=== PATIENT | female | born 1995 | race African-American/Black ===

== ENCOUNTER 2017-05-29 10:06 | Inpatient (IN) | payer MEDICAID ==
[~2017-05-29] VITALS: Ht 157.5 cm; Wt 46.3 kg
[2017-05-29 10:50] LABS: APPEARANCE,URINE CLOUDY; KETONES,URINE NEGATIVE (NEGATIVE); LEUKOCYTE ESTERASE ,URINE 1+ (NEGATIVE); NITRITE,URINE NEGATIVE (NEGATIVE); PH,URINE 6.5 (4.5-8.0); PROTEIN,URINE 3+ (NEGATIVE); UROBILINOGEN,URINE NORMAL MG/DL (0.0-1.0)
[2017-05-29 10:55] LABS: BACTERIA,URINE FEW /HPF; RBC,URINE TNTC /HPF (0 - 2); SQUAMOUS EPITHELIAL CELL,UR FEW /LPF (NONE/OCC)
--- NOTE | 2017-05-29 11:16 | Emergency Room Report ---
History of Present Illness General Chief Complaint: Complications Source: Patient Present Illness HPI Patient presents with complaints of possible miscarriage She reports that she was approximately one month late on her menstrual cycle Yesterday she noticed increased spotting And heavier clot this morning Patient has an 29-aojhn-hla child And has had 3 previous miscarriage/ Abdominal cramps improved after passing clots Denies any vomiting or diarrhea denies any fevers or chills Patient had a home 2 days ago which was positive Allergies: Coded Allergies: NO KNOWN ALLERGIES (Unverified Allergy, Unknown, 06/24/15) Patient History Past Medical History: see triage record Pertinent Family History: none Reviewed Nursing Documentation: PMH: Agreed, PSxH: Agreed Review of Systems All Other Systems: negative except mentioned in HPI Physical Exam Vital Signs Date Time Temp Pulse Resp B/P (MAP) Pulse Ox O2 Delivery O2 Flow Rate FiO2 05/29/17 10:16 98.2 86 20 139/79 99 Room Air Sp02 EP Interpretation: reviewed, normal General Appearance: well appearing, no apparent distress Head: normocephalic, atraumatic Eyes: bilateral eye PERRL, bilateral eye EOMI ENT: hearing grossly normal, normal pharynx, TMs + canals normal, uvula midline Neck: full range of motion, supple, no meningismus, no bony tend Respiratory: lungs clear, normal breath sounds, no rhonchi, no respiratory distress, no retraction, no accessory muscle use Cardiovascular #1: normal peripheral pulses, regular rate, rhythm, no edema, no gallop, no JVD, no murmur Gastrointestinal: normal bowel sounds, non tender, soft, no mass, no organomegaly, non-distended, no guarding, no hernia, no pulsatile mass, no rebound Genitourinary: no CVA tenderness Musculoskeletal: normal inspection Neurologic: oriented x3, responsive, protection officer III-XII nml as tested, motor strength/ tone normal, sensory intact Psychiatric: mood/affect normal Skin: normal color, no rash, warm/dry, palpation normal Lymphatic: normal inspection, no adenopathy Procedures Critical Care Time Critical Care Time 40 minutes for multiple re\re evaluations Diagnosis and findings in line with life-threatening pathology Requiring consultation Not involving any procedural time Medical Decision Making Diagnostic Impression: Primary Impression: Ectopic ER Course With the patient's history and examination, multiple differentials considered, including but not limited to , ectopic , ovarian torsion, gastritis, cholecystitis, pancreatitis, appendicitis Patient's beta Quant is over 6000 At this time the ultrasound does not show intrauterine however there is an adnexal mass on the right side which appears to be likely a sac raising the concern of ectopic Patient's discomfort is somewhat improved however still present Further hydration is provided and consultation with RN PROCEDURES Patient was initiated on methotrexate And at this time will be admitted for further care Labs Test 05/29/17 10:21 05/29/17 10:25 Human Chorionic Gonadotropin, Quant 6523 mIU/mL (1-6) Urine Color Red Urine Appearance Cloudy Urine pH 6.5 (4.5-8.0) Urine Specific [place] 1.020 (1.005-1.035) Urine Protein 3+ (NEGATIVE) Urine Glucose (UA) Negative (NEGATIVE) Urine Ketones Negative (NEGATIVE) Urine Occult Blood 5+ (NEGATIVE) Urine Nitrite Negative (NEGATIVE) Urine Bilirubin Negative (NEGATIVE) Urine Urobilinogen Normal MG/DL (0.0-1.0) Urine Leukocyte Esterase 1+ (NEGATIVE) Urine RBC Tntc /HPF (0 - 2) Urine WBC 2-4 /HPF (0 - 2) Urine Squamous Epithelial Cells Few /LPF (NONE/OCC) Urine Bacteria Few /HPF (NONE) Urine HCG, Qualitative Positive CT/MRI/US Diagnostic Results CT/MRI/US Diagnostic Results : Impression Pelvic ultrasound: No evidence of intrauterine , right-sided adnexal mass, appearance of sac like material, minimal fluid Last Vital Signs Date Time Temp Pulse Resp B/P (MAP) Pulse Ox O2 Delivery O2 Flow Rate FiO2 05/29/17 10:16 98.2 86 20 139/79 99 Room Air Status: improved Disposition: ADMITTED INPATIENT Condition: Serious Scripts No Active Prescriptions or Reported Meds Referrals: NOT CHOSEN IPA/,REFERRING (PCP) MIGUELINA PURI D.O. May 29, 2017 11:16
[2017-05-29] MEDS ORDERED: Methotrexate Sodium 50mg/2ml vial IM ONE (14:00)
[2017-05-29] MEDS ORDERED: Metoclopramide 10mg/2ml Inj IVP PRN (15:15)
[2017-05-29] MEDS ORDERED: Morphine Sulfate 2mg/ml Inj IVP PRN (15:15)
[2017-05-29] MEDS ORDERED: Mylanta II UD 30ml ORAL PRN (15:15)
[2017-05-29] MEDS ORDERED: LORazepam Inj 2mg/ml 1ml IV PRN (15:15)
[2017-05-29] MEDS ORDERED: Nitroglycerin Subl 0.4mg tab SL PRN (15:15)
[2017-05-29 15:17] LABS: BASOPHILS % (AUTO) 1.7 % (0.0-2.0); EOSINOPHILS % (AUTO) 0.5 % (0.0-3.0); LYMPHOCYTES % (AUTO) 40.2 % (20.0-45.0); MEAN CORPUSCULAR HEMOGLOBIN 27.4 PG (27.0-31.0); MEAN CORPUSCULAR HGB CONC 32.2 G/DL (32.0-36.0); MEAN CORPUSCULAR VOLUME 85 FL (80-99); MEAN PLATELET VOLUME 8.2 FL (6.5-10.1); MONOCYTES % (AUTO) 6.5 % (1.0-10.0); NEUTROPHILS % (AUTO) 51.2 % (45.0-75.0); PLATELET COUNT 222 K/UL (150-450); RED BLOOD COUNT 4.22 M/UL (4.20-5.40); RED CELL DISTRIBUTION WIDTH 15.1 % (11.6-14.8); WHITE BLOOD COUNT 5.2 K/UL (4.8-10.8)
[2017-05-29 15:35] LABS: ANION GAP 10 mmol/L (5-15); CALCIUM 8.9 MG/DL (8.5-10.1); CARBON DIOXIDE 25 MMOL/L (21-32); CHLORIDE 106 MMOL/L (98-107); CREATININE 0.6 MG/DL (0.55-1.30); GLOMERULAR FILTRATION RATE > 60 mL/min (>60); POTASSIUM 3.7 MMOL/L (3.5-5.1); SODIUM 141 MMOL/L (136-145)
[2017-05-29 15:39] LABS: PROTHROMBIN TIME 10.7 SEC (9.30-11.50)
[2017-05-29] MEDS: D5 1/2NS 1,000 ML IV SCH (15:49)
[2017-05-29 16:14] VITALS: BP 139/82
[2017-05-29 20:20] VITALS: BP 117/70
[2017-05-29] MEDS ORDERED: Miralax 17gm pkt ORAL PRN (21:00)
--- NOTE | 2017-05-29 22:14 | History and Physical ---
History of Present Illness General Date patient seen: May 29, 2017 Reason for Hospitalization: Complications Present Illness HPI Patient presents with complaints of possible miscarriage. She reports that she was approximately one month late on her menstrual cycle Yesterday she noticed increased spotting. Abdominal cramps improved after passing clots. She was diagnosed to have ectopic in ER and received a dose of Methotrexate. Motor Generator Set Operator was consulted as well. Allergies: Coded Allergies: NO KNOWN ALLERGIES (Unverified Allergy, Unknown, 06/24/15) Medication History No Active Prescriptions or Reported Meds Patient History Healthcare decision maker Resuscitation status Full Code Advanced Directive on File Review of Systems Gastrointestinal: Reports: abdominal pain Physical Exam General Appearance: WD/WN Lines, tubes and drains: peripheral HEENT: normocephalic, mucous membranes moist Neck: non-tender, normal alignment Respiratory/Chest: chest wall non-tender, lungs clear Breasts: no masses Cardiovascular/Chest: normal rate, regular rhythm Last 24 Hour Vital Signs Date Time Temp Pulse Resp B/P (MAP) Pulse Ox O2 Delivery O2 Flow Rate FiO2 05/29/17 20:20 98.2 70 20 117/70 100 Room Air 05/29/17 16:14 98.7 70 20 139/82 100 Room Air 05/29/17 15:30 98.2 80 20 139/79 99 Room Air 05/29/17 10:16 98.2 86 20 139/79 99 Room Air Intake and Output 05/29/17 05/30/17 19:00 07:00 Intake Total 225 ml Balance 225 ml Intake IV Total 225 ml # Voids 1 # Sanitary Pads 4 Laboratory Tests Test 05/29/17 10:21 05/29/17 10:25 05/29/17 14:49 Human Chorionic Gonadotropin, Quant 6523 mIU/mL (1-6) H Urine Color Red Urine Appearance Cloudy Urine pH 6.5 (4.5-8.0) Urine Specific [place] 1.020 (1.005-1.035) Urine Protein 3+ (NEGATIVE) H Urine Glucose (UA) Negative (NEGATIVE) Urine Ketones Negative (NEGATIVE) Urine Occult Blood 5+ (NEGATIVE) H Urine Nitrite Negative (NEGATIVE) Urine Bilirubin Negative (NEGATIVE) Urine Urobilinogen Normal MG/DL (0.0-1.0) Urine Leukocyte Esterase 1+ (NEGATIVE) H Urine RBC Tntc /HPF (0 - 2) H Urine WBC 2-4 /HPF (0 - 2) Urine Squamous Epithelial Cells Few /LPF (NONE/OCC) Urine Bacteria Few /HPF (NONE) Urine HCG, Qualitative Positive White Blood Count 5.2 K/UL (4.8-10.8) Red Blood Count 4.22 M/UL (4.20-5.40) Hemoglobin 11.6 G/DL (12.0-16.0) L Hematocrit 36.0 % (37.0-47.0) L Mean Corpuscular Volume 85 FL (80-99) Mean Corpuscular Hemoglobin 27.4 PG (27.0-31.0) Mean Corpuscular Hemoglobin Concent 32.2 G/DL (32.0-36.0) Red Cell Distribution Width 15.1 % (11.6-14.8) H Platelet Count 222 K/UL (150-450) Mean Platelet Volume 8.2 FL (6.5-10.1) Neutrophils (%) (Auto) 51.2 % (45.0-75.0) Lymphocytes (%) (Auto) 40.2 % (20.0-45.0) Monocytes (%) (Auto) 6.5 % (1.0-10.0) Eosinophils (%) (Auto) 0.5 % (0.0-3.0) Basophils (%) (Auto) 1.7 % (0.0-2.0) Prothrombin Time 10.7 SEC (9.30-11.50) Prothromb Time International Ratio 1.0 (0.9-1.1) Activated Partial Thromboplast Time 28 SEC (23-33) Sodium Level 141 MMOL/L (136-145) Potassium Level 3.7 MMOL/L (3.5-5.1) Chloride Level 106 MMOL/L (98-107) Carbon Dioxide Level 25 MMOL/L (21-32) Anion Gap 10 mmol/L (5-15) Blood Urea Nitrogen 9 mg/dL (7-18) Creatinine 0.6 MG/DL (0.55-1.30) Estimat Glomerular Filtration Rate > 60 mL/min (>60) Glucose Level 90 MG/DL (74-106) Calcium Level 8.9 MG/DL (8.5-10.1) Height (Feet): 5 Height (Inches): 2.00 Weight (Pounds): 102 Medications Current Medications Medications (Trade) Dose Ordered Sig/May Route PRN Reason Start Time Stop Time Status Last Admin Dose Admin Acetaminophen (Tylenol) 650 mg Q4H PRN ORAL T<100.5 F 05/29/17 15:15 06/28/17 15:14 Al Hydroxide/Mg Hydroxide (Mylanta II) 30 ml Q6H PRN ORAL dyspepsia 05/29/17 15:15 06/28/17 15:14 Dextrose (Dextrose 50%) STAT PRN IV Hypoglycemia 05/29/17 15:15 06/28/17 15:14 Dextrose/Sodium Chloride 1,000 ml @ 75 mls/hr [id number] IV 05/29/17 15:03 06/28/17 15:02 05/29/17 15:49 Diphenhydramine HCl (Benadryl) 25 mg Q6H PRN ORAL Itching/Pruritis 05/29/17 15:15 06/28/17 15:14 Lorazepam (Ativan 2mg/ml 1ml) 1 mg Q4H PRN IV agitation 05/29/17 15:15 06/05/17 15:14 Metoclopramide HCl (Reglan) 10 mg Q6H PRN IVP servere nauasea 05/29/17 15:15 06/28/17 15:14 Morphine Sulfate (Morphine Sulfate) 2 mg Q4H PRN IVP Severe Pain (Pain Scale 7-10) 05/29/17 15:15 06/05/17 15:14 05/29/17 17:39 Nitroglycerin (Ntg) 0.4 mg Q5M X 3 DOSES PRN SL Prn Chest Pain 05/29/17 15:15 06/28/17 15:14 Ondansetron HCl (Zofran) 4 mg Q6H PRN IVP Nausea & Vomiting 05/29/17 15:15 06/28/17 15:14 05/29/17 21:29 Pantoprazole (Protonix) 40 mg DAILY IV 05/30/17 09:00 06/29/17 08:59 Polyethylene Glycol (Miralax) 17 gm HSPRN PRN ORAL Constipation 05/29/17 21:00 06/28/17 20:59 Temazepam (Restoril) 15 mg HSPRN PRN ORAL Insomnia 05/29/17 21:00 06/05/17 20:59 Assessment/Plan Problem List: (1) Ectopic ICD Codes: O00.90 - Unspecified ectopic without intrauterine SNOMED: [id number] Assessment/Plan symptomatic treatment s/p methotrexate. EHSAN HAYWARD May 29, 2017 22:14
[2017-05-30 04:00] VITALS: BP 116/71
[2017-05-30] MEDS: D5 1/2NS 1,000 ML IV SCH (04:23)
[2017-05-30 08:00] VITALS: BP 110/64
[2017-05-30 08:19] LABS: BASOPHILS % (AUTO) 2.1 % (0.0-2.0); EOSINOPHILS % (AUTO) 1.2 % (0.0-3.0); LYMPHOCYTES % (AUTO) 37.5 % (20.0-45.0); MEAN CORPUSCULAR HEMOGLOBIN 27.4 PG (27.0-31.0); MEAN CORPUSCULAR HGB CONC 32.3 G/DL (32.0-36.0); MEAN CORPUSCULAR VOLUME 85 FL (80-99); MEAN PLATELET VOLUME 7.8 FL (6.5-10.1); MONOCYTES % (AUTO) 7.4 % (1.0-10.0); NEUTROPHILS % (AUTO) 51.8 % (45.0-75.0); PLATELET COUNT 206 K/UL (150-450); RED BLOOD COUNT 3.79 M/UL (4.20-5.40); RED CELL DISTRIBUTION WIDTH 15.5 % (11.6-14.8); WHITE BLOOD COUNT 4.1 K/UL (4.8-10.8)
[2017-05-30 08:57] LABS: ALANINE AMINOTRANSFERASE 19 U/L (12-78); ALBUMIN/GLOBULIN RATIO 1.1 (1.0-2.7); ANION GAP 11 mmol/L (5-15); ASPARTATE AMINO TRANSFERASE 15 U/L (15-37); CALCIUM 8.3 MG/DL (8.5-10.1); CARBON DIOXIDE 24 MMOL/L (21-32); CHLORIDE 105 MMOL/L (98-107); CREATININE 0.7 MG/DL (0.55-1.30); GLOMERULAR FILTRATION RATE > 60 mL/min (>60); POTASSIUM 3.2 MMOL/L (3.5-5.1); SODIUM 140 MMOL/L (136-145); TOTAL PROTEIN 6.7 G/DL (6.4-8.2)
[2017-05-30 09:00] LABS: BILIRUBIN,DIRECT 0.3 MG/DL (0.0-0.3)
[2017-05-30] MEDS ORDERED: Pantoprazole Inj IV SCH (09:00)
--- NOTE | 2017-05-30 10:13 | Diagnostic Imaging Report ---
Indication: Pelvic pain Technique: OB ultrasound first trimester. Comparison: None Findings: Uterus measures 10.7 x 5.4 x 5.9 cm. The endometrial echo complex measures 11 mm. No intrauterine is identified. Right ovary measures 2.9 x 2.7 cm. There is a thick rimmed right adnexal structure measuring 1.7 x 1.2 cm. No yolk sac or pole are identified. There is trace free fluid in the pelvis. The left ovary measures 2.5 x 2.0 cm and is grossly unremarkable. Impression: No intrauterine . Approximately 1.7 x 1.2 cm thick rimmed right adnexal structure and possibility of ectopic should be considered. No yolk sac or pole identified. Laboratory/clinical correlation recommended. Followup imaging recommended as indicated. Trace free fluid in the pelvis. Other findings as above. Findings discussed with Dr. Jovel.
[2017-05-30] MEDS ORDERED: D5 1/2NS 1000ml IV ONE (10:57)
--- NOTE | 2017-05-30 11:05 | Pulmonology Progress Note ---
Assessment/Plan Problems: (1) Ectopic Assessment/Plan d/w dr Murrieta. its ok to dc the pt home. Subjective ROS Limited/Unobtainable: No Constitutional: Reports: no symptoms HEENT: Repors: no symptoms Respiratory: Reports: no symptoms Allergies: Coded Allergies: NO KNOWN ALLERGIES (Unverified Allergy, Unknown, 06/24/15) Objective Last 24 Hour Vital Signs Date Time Temp Pulse Resp B/P (MAP) Pulse Ox O2 Delivery O2 Flow Rate FiO2 05/30/17 08:00 97.9 72 18 110/64 98 Room Air 05/30/17 04:00 98.3 74 17 116/71 96 Room Air 05/29/17 20:20 98.2 70 20 117/70 100 Room Air 05/29/17 16:14 98.7 70 20 139/82 100 Room Air 05/29/17 15:30 98.2 80 20 139/79 99 Room Air General Appearance: WD/WN HEENT: normocephalic, atraumatic Respiratory/Chest: chest wall non-tender, lungs clear Cardiovascular: normal peripheral pulses, regular rhythm Genitourinary: normal external genitalia Extremities: no clubbing Skin: no rash Laboratory Tests 05/29/17 14:49: White Blood Count 5.2, Red Blood Count 4.22, Hemoglobin 11.6L, Hematocrit 36.0L , Mean Corpuscular Volume 85, Mean Corpuscular Hemoglobin 27.4, Mean Corpuscular Hemoglobin Concent 32.2, Red Cell Distribution Width 15.1H, Platelet Count 222, Mean Platelet Volume 8.2, Neutrophils (%) (Auto) 51.2, Lymphocytes (%) (Auto) 40.2, Monocytes (%) (Auto) 6.5, Eosinophils (%) (Auto) 0.5, Basophils (%) (Auto) 1.7, Prothrombin Time 10.7, Prothromb Time International Ratio 1.0, Activated Partial Thromboplast Time 28, Sodium Level 141, Potassium Level 3.7, Chloride Level 106, Carbon Dioxide Level 25, Anion Gap 10, Blood Urea Nitrogen 9, Creatinine 0.6, Estimat Glomerular Filtration Rate > 60, Glucose Level 90, Calcium Level 8.9 05/30/17 06:32: White Blood Count 4.1L, Red Blood Count 3.79L, Hemoglobin 10.4L, Hematocrit 32.1L, Mean Corpuscular Volume 85, Mean Corpuscular Hemoglobin 27.4, Mean Corpuscular Hemoglobin Concent 32.3, Red Cell Distribution Width 15.5H, Platelet Count 206, Mean Platelet Volume 7.8, Neutrophils (%) (Auto) 51.8, Lymphocytes (%) (Auto) 37.5, Monocytes (%) (Auto) 7.4, Eosinophils (%) (Auto) 1.2, Basophils (%) (Auto) 2.1H, Activated Partial Thromboplast Time 29, Sodium Level 140, Potassium Level 3.2L, Chloride Level 105, Carbon Dioxide Level 24, Anion Gap 11, Blood Urea Nitrogen 8, Creatinine 0.7, Estimat Glomerular Filtration Rate > 60, Glucose Level 87, Calcium Level 8.3L, Total Bilirubin 2.2H , Direct Bilirubin 0.3, Aspartate Amino Transf (AST/SGOT) 15, Alanine Aminotransferase (ALT/SGPT) 19, Alkaline Phosphatase 40L, Total Protein 6.7, Albumin 3.5, Globulin 3.2, Albumin/Globulin Ratio 1.1 Current Medications Medications (Trade) Dose Ordered Sig/May Route PRN Reason Start Time Stop Time Status Last Admin Dose Admin Acetaminophen (Tylenol) 650 mg Q4H PRN ORAL T<100.5 F 05/29/17 15:15 06/28/17 15:14 Al Hydroxide/Mg Hydroxide (Mylanta II) 30 ml Q6H PRN ORAL dyspepsia 05/29/17 15:15 06/28/17 15:14 Dextrose (Dextrose 50%) STAT PRN IV Hypoglycemia 05/29/17 15:15 06/28/17 15:14 Dextrose/Sodium Chloride 1,000 ml @ 75 mls/hr [id number] IV 05/29/17 15:03 06/28/17 15:02 05/30/17 04:23 Diphenhydramine HCl (Benadryl) 25 mg Q6H PRN ORAL Itching/Pruritis 05/29/17 15:15 06/28/17 15:14 Lorazepam (Ativan 2mg/ml 1ml) 1 mg Q4H PRN IV agitation 05/29/17 15:15 06/05/17 15:14 Metoclopramide HCl (Reglan) 10 mg Q6H PRN IVP servere nauasea 05/29/17 15:15 06/28/17 15:14 Morphine Sulfate (Morphine Sulfate) 2 mg Q4H PRN IVP Severe Pain (Pain Scale 7-10) 05/29/17 15:15 06/05/17 15:14 05/29/17 17:39 Nitroglycerin (Ntg) 0.4 mg Q5M X 3 DOSES PRN SL Prn Chest Pain 05/29/17 15:15 06/28/17 15:14 Ondansetron HCl (Zofran) 4 mg Q6H PRN IVP Nausea & Vomiting 05/29/17 15:15 06/28/17 15:14 05/29/17 21:29 Pantoprazole (Protonix) 40 mg DAILY IV 05/30/17 09:00 06/29/17 08:59 05/30/17 10:00 Polyethylene Glycol (Miralax) 17 gm HSPRN PRN ORAL Constipation 05/29/17 21:00 06/28/17 20:59 Temazepam (Restoril) 15 mg HSPRN PRN ORAL Insomnia 05/29/17 21:00 06/05/17 20:59 EHSAN HAYWARD May 30, 2017 11:05
--- NOTE | 2017-06-01 13:11 | Discharge Summary ---
Discharge Summary Hospital Course Date of Admission May 29, 2017 at 14:05 Date of Discharge May 30, 2017 at 11:51 Admitting Diagnosis ectopic JAYSON Mckay is a 21 year old female who was admitted on May 29, 2017 at 14:05 for Ectopic Hospital Course dc summary #[id number] Discharge Condition Upon Discharge: stable Discharge Disposition Patient was discharged to Home (01) Discharge Diagnoses: Discharge Instructions Discharge Instructions Special Instructions I have been assigned to complete a D/C Summary on this account. I was not involved in the patient management Zari Montanze NP ([place]anchtein) Jun 01, 2017 13:11
--- NOTE | 2017-06-01 17:00 | Discharge Summary 2 SIG ---
DATE OF ADMISSION: 05/29/2017 DATE OF DISCHARGE: 05/30/2017 REASON FOR ADMISSION: 21-year-old female presented to the emergency room complaining of possible miscarriage. She reported being about one month late for menstrual period. She started to notice since yesterday vaginal spotting. In the morning she noted severe blood clots. The patient had an 52-yacim-hdo child. She had three previous miscarriages/. Abdominal cramps improved after the patient passed clots. She denied vomiting or diarrhea. She denied fever and chills. The patient had a home test two days ago, which was positive. The patient was afebrile. Stable vital signs. Qualitative urine HCG was positive and serum HCG was 6523. OB ultrasound of the first trimester revealed findings suspicious for ectopic . No intrauterine was identified. No yolk sac or pole were identified; trace free fluid in the pelvis. Methotrexate was initiated in the emergency department.The patient was admitted for ectopic . HOSPITAL STAY: The patient was admitted. The patient was on the IV fluids. Pain management and symptomatic treatment were provided. Electrolytes and renal parameters were closely monitored. No leukocytosis. Stable laboratory workup. Pain resolved. Case was discussed over the phone with BREAKFAST MANAGER specialist dr Murrieta, who stated that the patient can be safely discharged and follow up with her BREAKFAST MANAGER as outpatient for serial HCG levels monitoring. Hypokalemia was treated with replacement prior to discharge, since potassium was 3.2. The patient was stable for discharge. Due to the rapid and unexpected improvement in the patient's condition, the patient was discharged in one day. FINAL DIAGNOSES: 1. Ectopic . 2. Hypokalemia. DISCHARGE MEDICATION: None. DISCHARGE INSTRUCTIONS: Follow up with BREAKFAST MANAGER for serial HCG level. Kary Lazar M.D. I have been assigned to dictate discharge summary on this account and I was not involved in the patient's management. Zari VegaRoger ordoñez.PCrystal DR: SUSHANT JOB#: [id number] CC: REED
== END 2017-05-30 11:51 | disposition home or self-care (01) | DRG 566 ==
LOC: EMR 10:35 → 3E 14:05 → EDBEDREQ 14:39
DX: O00.90 Unspecified ectopic pregnancy without intrauterine pregnancy (principal); E87.6 Hypokalemia
CPT/HCPCS: 36415; 76801; 76830; 80048; 80053; 81003; 81025; 82248; 84702; 85025; 85610; 85730; 99285; J2405